=== PATIENT | male | born 1935 | race Hispanic/Latino ===

== ENCOUNTER → 2017-12-04 | Outpatient (CLI) | payer OTHER ==
[~2017-12-04] MED LIST: ACET1TAB25 PO; CEPH500C2 PO; FINA5TAB41 PO; FOLI1TAB15 PO; HYDR500C2 PO; LISI-613 PO; OMEP20TA25 PO; TAMS0.4C32 PO
== END ==
LOC: OIH 16:18
PROVIDERS: ATTEND Internal Medicine
DX: R05 Cough (principal)
CPT/HCPCS: 71046

== ENCOUNTER → 2018-02-13 | Outpatient (CLI) | payer OTHER | END | disposition home or self-care (01) | LOC: OIH 16:15 | PROVIDERS: ATTEND Internal Medicine | DX: M19.012 Primary osteoarthritis, left shoulder (principal); M24.812 Other specific joint derangements of left shoulder, not elsewhere classified | CPT/HCPCS: 73030 ==